=== PATIENT | female | born 1960 | race Two or more races ===

== ENCOUNTER → 2017-10-02 | Day surgery (SDC) | payer BC ==
[~2017-10-02] MED LIST: CRESTOR5 MG PO; HYDR12.53 PO; HYDROmorphone 2 MG/ML VIAL IV PRN; IV RINGERS,LACTATED 1000ML 1,000 ML IV SCH; LIDOCAINE 1% PF 2 ML VIAL. ID PRN; LISI40TA PO; METF500T4 PO; MORPHINE SULFATE 4 MG/ML DISP.SYRIN. IV PRN; ONDANSETRON PF 4 MG/2 ML VIAL. IV PRN; PROCHLORPERAZINE 10 MG/2 ML VIAL. IV PRN; PROPOFOL 40 ML IV ONE; fentaNYL PF VIAL 100 MCG/2 ML VIAL IV PRN
--- NOTE | 2017-10-02 09:27 | PDOC1 ---
HISTORY & PHYSICAL H&P Selam Ojeda [id number] 1960 09/21/2017 10:15 AM 11/19 [employer] [facility], [facility] OUR PATIENTS COME FIRST [address] [place] [address] Ph. [phone] Patient: Selam Ojeda Date of : 1960 Date: 09/21/2017 10:15 AM Visit Type: Office Visit This 57 year old female presents for Family h/o of colon cancer/gris. History of Present Illness: 1. Family h/o of colon cancer/gris Patient is here for follow up. Patient has family history of colon cancer. Brother had colon cancer. Her last colonoscopy was 5 yrs ago. No interval complain or issue. Had history of polycystic kidney and liver disease. Has several cyst in the liver and enlarge liver. INTAKE COMMENTS: Intake Comments: Nurse Note: the pt is here today to schedule a repeat colonoscopy due to a family hx. The pt's last colonoscopy was in 2011. PROBLEM LIST: Problem Description Onset Date Pure hypercholesterolemia 08/30/2012 PAST MEDICAL/SURGICAL HISTORY (Detailed) Disease/disorder Onset Date Management Date Comments Hernia repair, umbilical 2011 Liver asperation 2011 colonoscopy 10/03/2012 colonoscopy 2005 Hyperlipidemia Polycystic Kidney/Liver disease 1998 DIAGNOSTICS HISTORY: Test Ordered Interpretation Result completed Colonoscopy 08/30/2012 normal Imp: Normal colon to cecum 10/03/2012 Test Ordered Ordering Comments Modifier Colonoscopy 08/30/2012 Medications (Active): Started Medication Directions Instruction Stopped 09/21/2017 Colyte with Flavor Packs 240 gram-22.72 g-6.72 g-5.84 g oral solution as directed hydrochlorothiazide 12.5 mg tablet take 1 tablet by oral route every day lisinopril 40 mg tablet take 1 tablet (40MG) by oral route every day metformin 500 mg tablet take 1 tablet by oral route 2 times every day with morning and evening meals rosuvastatin 5 mg tablet take 1 tablet by oral route every day Allergies: Ingredient Reaction Medication Name Comment NO KNOWN ALLERGIES REVIEW OF SYSTEMS System Neg/Pos Details Constitutional Negative Chills, fever, malaise and weight loss. ENMT Negative Sore throat. Eyes Negative Double vision. Respiratory Negative Dyspnea and wheezing. Cardio Negative Chest pain and irregular heartbeat/palpitations. GI Positive See HPI. GI Negative See HPI. Negative Dysuria and hematuria. Endocrine Negative Cold intolerance and heat intolerance. Psych Negative Anxiety. Integumentary Negative Hives and rash. MS Negative Joint pain. Jesse/Lymph Negative Easy bleeding and easy bruising. Allergic/Immuno Negative Food allergies. VITAL SIGNS Time BP mm/Hg Pulse /min Resp /min Temp F Ht ft Ht in Ht cm Wt lb Wt kg BMI kg/ m2 BSA m2 O2 Sat% 10:15 AM 118/64 83 5.0 2.00 161.00 73.028 29.44 98 Time Measured by 10:15 AM Lindsey Ontiveros PHYSICAL EXAM: Exam Findings Details Constitutional Normal Well developed. Eyes Normal Conjunctiva - Right: Normal, Left: Normal. Sclera - Right: Normal, Left: Normal. Nasopharynx Normal Lips/teeth/gums - Normal. Neck Exam Normal Inspection - Normal. Thyroid gland - Normal. Respiratory Normal Inspection - Normal. Auscultation - Normal. Cardiovascular Normal Regular rate and rhythm. No murmurs, gallops, or rubs. Vascular Normal Pulses - Carotids: Normal, Femoral: Normal, Dorsalis pedis: Normal. Abdomen Normal Inspection - Normal. Anterior palpation - No guarding. No abdominal tenderness. No hepatic enlargement. No splenic enlargement. No hernia. No Ascites. Skin Normal Inspection - Normal. Extremity Normal No edema. Psychiatric Normal Oriented to time, place, person, and situation. Appropriate mood and effect. Assessment/Plan # Detail Type Description 1. Assessment Family history of colon cancer (Z80.0). Patient Plan schedule colonoscopy at [facility] Plan Orders Further diagnostic evaluations ordered today include(s) Colonoscopy to be performed today. She is to schedule a follow-up visit with Vicenta Sequeira MD upon completion of work-up Electronically signed by: Vicenta Sequeira MD 09/21/2017 10:40 AM Document generated by: Vicenta Sequeira 09/21/2017 10:40 AM Taryn Mosquera MD, Family Practice; Mor Roberts MD Internal Medicine; Aziza Chicas MD, Internal Medicine; Panda Sequeira MD Internal Medicine; Vicenta Sequeira MD, Gastroenterology; Ethan Lea MD, Rheumatology, S. Joaquin Massey, Physical Medicine/Rehab Nithin Aguayo APRN ------ 10/02/17 Patient seen and examined. No change in H&P. VICENTA SEQUEIRA MD Oct 02, 2017 09:27
[2017-10-02 10:13] VITALS: BP 113/64
== END | disposition home or self-care (01) ==
LOC: ENDOS 08:59
PROVIDERS: ATTEND Internal Medicine Gastroenterology
DX: Z80.0 Family history of malignant neoplasm of digestive organs (principal); E78.00 Pure hypercholesterolemia, unspecified; I10 Essential (primary) hypertension; Z87.442 Personal history of urinary calculi
CPT/HCPCS: 45378; J2704